=== PATIENT | female | born 1985 | race African-American/Black ===

== ENCOUNTER 2018-10-30 07:50 | Day surgery (SDC) | payer OTHER ==
--- OUTSIDE RECORDS SUMMARY | 2018-10-30 07:54 | XMS REPORT | Summary of Care ---
:1985 Author Organization [facility] Address [address] [place] [address]- Encounter HQ Encntr_alibarrear(FIN) [phone] Date(s): 09/09/17 - 09/09/17 [facility] [address] [place] [phone] Discharge Diagnosis: Brain concussion Discharge Diagnosis: Acute head injury Discharge Diagnosis: Post concussive syndrome Discharge Disposition: Home or Self Care Attending Physician: Lincoln Salas DO Vital Signs Most recent to oldest [Reference Range]: 1 2 Height 170.18 cm (09/09/17 12:36 PM) Temperature Oral [96.4-99.1 DegF] 97.9 DegF (09/09/17 12:36 PM) Blood Pressure [90-140/60-90 mmHg] 110/75 mmHg 127/85 mmHg (09/09/17 3:48 PM) (09/09/17 12:36 PM) Respiratory Rate [14-20 BRMIN] 18 BRMIN 18 BRMIN (09/09/17 3:48 PM) (09/09/17 12:36 PM) Peripheral Pulse Rate [60-100 bpm] 71 bpm 65 bpm (09/09/17 3:48 PM) (09/09/17 12:36 PM) Weight 103.636 kg (09/09/17 12:36 PM) Body Mass Index 35.78 m2 (09/09/17 12:36 PM) Problem List No data available for this section Allergies, Adverse Reactions, Alerts Substance Reaction Severity Status NKDA Active Medications naproxen 375 mg oral tablet 375 mg=1 tab, PO, BID, X 7 day, # 14 tab, 0 Refill(s) Start Date: 09/09/17 Stop Date: 09/16/17 Status: OrderedZofran 4 mg oral tablet 4 mg=1 tab, PO, Q8H, PRN Nausea, # 15 tab, 0 Refill(s) Start Date: 09/09/17 Stop Date: 09/14/17 Status: OrderedZofran ODT 4 mg, Route: PO, Drug form: TABDIS, ONCE, Dosing Weight 103.636, kg, Priority: STAT, 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, 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/09/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 Start Date: 09/09/17 Stop Date: 09/09/17 Status: Completed Results URINE CHEM Most recent to oldest [Reference Range]: 1 U Preg [Negative] Negative (09/09/17 2:21 PM) URINE AND STOOL Most recent to oldest [Reference Range]: 1 UA Turbidity [Clear] Clear (09/09/17 2:21 PM) UA Color [Yellow] Light Yellow *NA* (09/09/17 2:21 PM) UA pH [5.0-8.0] 7.0 (09/09/17 2:21 PM) UA Spec Grav [<=1.030] 1.014 (09/09/17 2:21 PM) UA Glucose [Negative mg/dL] Negative mg/dL *NA* (09/09/17 2:21 PM) UA Blood [Negative] Negative (09/09/17 2:21 PM) UA Ketones [Negative mg/dL] Negative mg/dL *NA* (09/09/17 2:21 PM) UA Protein [Negative mg/dL] Negative mg/dL (09/09/17 2:21 PM) UA Urobilinogen [0.1-1.0 mg/dL] <=1.0 mg/dL *NA* (09/09/17 2:21 PM) UA Bili [Negative] Negative *NA* (09/09/17 2:21 PM) UA Leuk Est [Negative] Negative (09/09/17 2:21 PM) UA Nitrite [Negative] Negative (09/09/17 2:21 PM) UA WBC [0-5 /HPF] <1 /HPF (09/09/17 2:21 PM) UA Bacteria [None Seen /HPF] Occasional /HPF *NA* (09/09/17 2:21 PM) UA Sq Epi [Few /LPF] Occasional /LPF *NA* (09/09/17 2:21 PM) UA Mucus [None Seen /LPF] Few /LPF *NA* (09/09/17 2:21 PM) Immunizations No data available for this section Procedures No data available for this section Social History No data available for this section Assessment and Plan No data available for this section
--- OUTSIDE RECORDS SUMMARY | 2018-10-30 07:54 | XMS REPORT | Summary of Care ---
:1985 Author Organization [facility] Address [address] [place] [address]- Encounter HQ Encntr_alias(FIN) [id number] Date(s): 09/29/17 - 09/30/17 [facility] [address] [facility] [place] [address] [phone] Vital Signs No data available for this section Problem List No data available for this section Allergies, Adverse Reactions, Alerts Substance Reaction Severity Status NKDA Active Medications No data available for this section Results No data available for this section Immunizations No data available for this section Procedures No data available for this section Social History No data available for this section Assessment and Plan No data available for this section
--- OUTSIDE RECORDS SUMMARY | 2018-10-30 07:54 | XMS REPORT | Summary of Care ---
:1985 Author Organization [facility] Address [address] [place] [address]- Encounter HQ Encntr_alias(FIN) [id number] Date(s): 09/29/17 - 09/30/17 [facility] [place] [address] [place], [place] [address] [phone] Vital Signs No data available for this section Problem List Condition Effective Dates Status Health Status Informant Migraines(Confirmed) Resolved Morbid obesity(Confirmed) Active Allergies, Adverse Reactions, Alerts Substance Reaction Severity Status NKDA Active Medications No data available for this section Results No data available for this section Immunizations No data available for this section Procedures No data available for this section Social History Social History Type Response Smoking Status Never smoker; Exposure to Tobacco Smoke None; Cigarette Smoking Last 365 Days No; Reg Smoking Cessation Counseling No entered on: 11/07/17 Assessment and Plan No data available for this section
--- OUTSIDE RECORDS SUMMARY | 2018-10-30 07:54 | XMS REPORT | Summary of Care ---
:1985 Author Organization [facility] [place] Address [address] [place] [address] [place] [address]- Encounter HQ Vera_logan(FIN) [phone] Date(s): 11/07/17 - 11/07/17 [facility] [address] [place] [address] [place] [address] [phone] Discharge Disposition: Home or Self Care Vital Signs Most recent to oldest [Reference Range]: 1 Blood Pressure [90-140/60-90 mmHg] 110/75 mmHg (11/07/17 10:43 AM) Peripheral Pulse Rate [60-100 bpm] 65 bpm (11/07/17 10:43 AM) Weight 106.364 kg (11/07/17 10:43 AM) Problem List Condition Effective Dates Status Health Status Informant Migraines(Confirmed) Resolved Morbid obesity(Confirmed) Active Allergies, Adverse Reactions, Alerts Substance Reaction Severity Status NKDA Active Medications amitriptyline 10 mg oral tablet See Instructions, Take 10 mg PO at bedtime, increase dose by 10 mg every week as tolerated until reaching a goal dose of 50 mg PO at bedtime., # 150 tab, 5 Refill(s), Pharmacy: [id number] Start Date: 11/07/17 Status: Orderednaproxen 500 mg, PO, BID, 0 Refill(s) Start Date: 11/07/17 Status: OrderedSUMAtriptan 25 mg oral tablet 25 mg=1 tab, PO, ONCE, PRN Migraine headache, may repeat dose in 2 hours if needed, # 9 tab, 5 Refill(s), Pharmacy: [id number] Start Date: 11/07/17 Status: Ordered Results No data available for this section [...]
--- OUTSIDE RECORDS SUMMARY | 2018-10-30 07:54 | XMS REPORT | Summary of Care ---
:1985 Author Organization [facility] [place] Address [address] [address]- Encounter HQ Encntr_alias(FIN) [phone] Date(s): 12/22/17 - 12/23/17 [facility] [address] [place] [address]- [phone] Vital Signs No data available for this [...]
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
--- OUTSIDE RECORDS SUMMARY | 2018-10-30 07:54 | XMS REPORT | Summary of Care ---
:1985 Author Organization [facility] [place] Address [address] [place] [address] [place] [address]- Encounter HQ Encntr_alias(FIN) [id number] Date(s): 12/23/17 - 12/23/17 [facility] [place] [address] [place] [address] [phone] Referring Physician: Lincoln Salas DO Vital Signs No data available for this [...]
[2018-10-30] MEDS ORDERED: CEFAZOLIN/SWI 1gm 1 GM/10 ML SYR ONE (08:19)
[2018-10-30] MEDS ORDERED: Ringers Lactate 1,000 ML IV ONE ×3 (08:19→15:18)
[2018-10-30] MEDS ORDERED: SCOPOLAMINE HYDROBROMIDE PATCH TD ONE (08:19)
[2018-10-30] MEDS ORDERED: NS 0.9% VIAL 20 ML ONE (09:24)
[2018-10-30] MEDS ORDERED: GENTAMICIN SULF 80 MG/2ML INJ ONE (09:25)
[2018-10-30] MEDS ORDERED: BACITRACIN 50000 UNIT VIAL ONE (09:25)
[2018-10-30] MEDS ORDERED: CEFAZOLIN SODIUM 1 GM/VIAL ONE (09:25)
[2018-10-30] MEDS ORDERED: FENTANYL CITR 250 MCG/5 ML ONE (10:14)
[2018-10-30] MEDS ORDERED: DEXAMETHASONE 10 MG/ML VIAL ONE (10:14)
[2018-10-30] MEDS ORDERED: MIDAZOLAM HCL 2 MG/2 ML INJ ONE ×2 (10:14→16:19)
[2018-10-30] MEDS ORDERED: PROPOFOL 200 MG/20 ML VIAL IV ONE (10:14)
[2018-10-30] MEDS ORDERED: LIDOCAINE 1% MPF 5 ML VIAL ONE (10:14)
[2018-10-30] MEDS ORDERED: NS 0.9% VIAL 10 ML ONE (10:15)
[2018-10-30] MEDS ORDERED: VECURONIUM 10 MG/VIAL IV ONE (10:15)
[2018-10-30] MEDS ORDERED: ONDANSETRON 4 MG/2 ML VIAL ONE ×2 (10:15→14:53)
[2018-10-30] MEDS ORDERED: EPHEDRINE SULF 50 MG/ML VIAL ONE (12:06)
[2018-10-30] MEDS ORDERED: FENTANYL CITR 100 MCG/2 ML ONE ×2 (12:53→14:55)
[2018-10-30] MEDS ORDERED: KETOROLAC 30 MG/ML INJ ONE ×2 (14:53→14:54)
[2018-10-30] MEDS ORDERED: GLYCOPYRROLATE 0.2 MG/ML SYR ONE (14:53)
[2018-10-30] MEDS ORDERED: NEOSTIGMINE 1 MG/ML -10 ML VIAL ONE (14:54)
[2018-10-30] MEDS ORDERED: Mastisol Adhesive Liq ONE (15:14)
[2018-10-30] MEDS: HYDROMORPHONE HCL 2 MG/ML inj ONE ×4 (15:37→15:55)
[2018-10-30] MEDS: HYDROMORPHONE HCL 1 MG/ML INJ ONE ×2 (16:00→16:05)
[2018-10-30] MEDS ORDERED: CODEINE 30MG/APAP 300MG TAB ONE (17:27)
--- NOTE | 2018-10-31 03:20 | OP ---
Surgeon: Kevin Mark MD [employer] Specialist: Kenan. Preoperative Diagnosis: Breast descent, status post breast augmentation. Postoperative Diagnosis: Breast descent, status post breast augmentation. Procedure: Explantation of 325 cc right saline, 350 left saline prepectoral implants with lift. Anesthesia: General. Procedure In Detail: After satisfactory induction of general anesthesia, chest was prepped with Dura Prep, dry sterile drapes applied in the usual manner. A 5-cm template was used to outline the right and left areola. Then, the intervening skin was de-epithelialized with EpiCut and dermabrader. Flap was then thinned to 1.2 cm thick and elevated cephalad towards the sternum, clavicle, anterior axilla ry line. After it was elevated, the implant was removed at the 12 o'clock position in both breasts. The right side implant was 325, left side was 350. Then, the inferior incision was made and the DFS tissue formed into a cone with 2-0 PDS sutures. Straps were elevated at 12 o'clock, 1:30 and 3 o'cl ock position on the right side and mirror-image on left side. Then, the straps were woven in and out of the pectoralis major muscle, back to the base of the cone, back to the pectoralis major, and then tied onto themselves, back at the base of cone. A 3 o'clock strap was sewn over the sternum at the 3 o'clock position. Left side was done in the mirror-image manner. The wound was carefully stapled shut. The patient was sat up and looked for symmetry, marked with Dog ears. The patient returned to supine position. The Dog ears were excised laterally and then a MARVEL drain was brought out the axilla and sewn in place with 2-0 silk and the wound closed in layers with 3-0 Vicryl on subcu, 3-0 PDS run rashel subcuticular tied from lateral to medial and medial to lateral and tied in the vertical meridian of the breast. Left side done in an identical manner. The patient was then sat up. Site for new n ipple-areolar complex was marked out. A 5-cm template was used. Tissue was excised. Nipple deliver ed and sewn with interrupted 4-0 PDS, followed by 4-0 PDS running subcuticular. Dressings consisted of tincture of benzoin, Steri-Strips, 5x5s, fluffs, and David wrap. The patient tolerated the procedur e well and returned to recovery. The amount removed from each breast was 45 g of the breast tissue a s well as the implants 325 right, 350 left. NICKI Voice ID: [id number] Report ID: [id number]
== END 2018-10-30 18:30 | disposition home or self-care (01) ==
LOC: OR 07:50
PROVIDERS: ATTEND Specialist
PROC: 0HPT0JZ Removal of Synthetic Substitute from Right Breast, Open Approach (ICD-10-PCS; 2018-10-30)
PROC: 0HSV0ZZ Reposition Bilateral Breast, Open Approach (ICD-10-PCS; 2018-10-30)
PROC: 0HPU0JZ Removal of Synthetic Substitute from Left Breast, Open Approach (ICD-10-PCS; principal; 2018-10-30 09:00)
DX: N65.1 Disproportion of reconstructed breast (principal); N65.0 Deformity of reconstructed breast
CPT/HCPCS: 81025; 88305; J0690; J1100; J1170; J1580; J2250; J2405; J2704; J2710; J3010